=== PATIENT | male | born 1965 | race Caucasian/White ===

== ENCOUNTER 2023-06-10 22:09 | Emergency (ER) | payer SELFPAY ==
[~2023-06-10] VITALS: Ht 172.7 cm; Wt 99.8 kg
[2023-06-10 22:14] VITALS: BP 154/122; PULSE 100; RESP 18; TEMP 97.4
== END 2023-06-10 22:53 ==
LOC: MED 22:09
DX: F10.129 Alcohol abuse with intoxication, unspecified (principal); Y90.9 Presence of alcohol in blood, level not specified; V49.88XA Car occupant (driver) (passenger) injured in other specified transport accidents, initial encounter; Y93.89 Activity, other specified; Y92.89 Other specified places as the place of occurrence of the external cause; Y99.8 Other external cause status
CPT/HCPCS: 99283